=== PATIENT | female | born 1990 | race Caucasian/White ===

== ENCOUNTER 2017-10-18 06:30 | Inpatient (IN) | payer OTHER ==
[~2017-10-18] VITALS: Ht 165.1 cm; Wt 77.9 kg
[~2017-10-18 06:30] MED LIST: PREN1TAB49 PO
[2017-10-18 06:54] VITALS: Ht 165.1 cm; Wt 77.9 kg
[2017-10-18] MEDS ORDERED: BUTORPHANOL 2 MG INJ IV PRN ×2 (07:00)
[2017-10-18] MEDS ORDERED: OXYTOCIN 30 UNITS/LR 500 ML IV SCH ×2 (07:00)
[2017-10-18] MEDS ORDERED: AMPICILLIN 2 GM/NS (PMX) 100 ML IV ONE (07:00)
[2017-10-18] MEDS ORDERED: IBUPROFEN 600 MG TAB PO PRN (07:00)
[2017-10-18] MEDS ORDERED: OXYTOCIN 30 UNITS/LR 500 ML IV PRN ×2 (07:00→21:00)
[2017-10-18] MEDS ORDERED: MISOPROSTOL 200 MCG TAB PR PRN ×2 (07:00→21:00)
[2017-10-18] MEDS ORDERED: LIDOCAINE 1% (MPF) 30 ML INJ INJ PRN (07:00)
[2017-10-18] MEDS ORDERED: CARBOPROST 250 MCG INJ IM PRN ×2 (07:00→21:00)
[2017-10-18] MEDS ORDERED: METHYLERGONOVINE 0.2 MG INJ IM PRN ×2 (07:00→21:00)
[2017-10-18] MEDS: LACTATED RINGER'S 1,000 ML IV SCH ×3 (07:06→15:52)
[2017-10-18 07:30] VITALS: BP 112/77; PULSE 95; RESP 20
[2017-10-18 07:57] LABS: BASOPHILS % 0.2 % (0.0-2.0); EOSINOPHILS # 0.1 10^3/ul (0.0-0.5); EOSINOPHILS % 1.2 % (0.0-7.0); HEMATOCRIT 40.8 % (37.0-47.0); HEMOGLOBIN 14.5 g/dl (12.0-16.0); LYMPHOCYTES # 2.1 10^3/ul (0.8-2.9); LYMPHOCYTES % 19.2 % (15.0-51.0); MEAN CORPUSCULAR HEMOGLOBIN 29.7 pg (29.0-33.0); MEAN CORPUSCULAR HGB CONC 35.5 g/dl (32.0-37.0); MEAN CORPUSCULAR VOLUME 83.4 fl (82.0-101.0); MEAN PLATELET VOLUME 10.6 fl (7.4-10.4); MONOCYTE # 0.7 10^3/ul (0.3-0.9); MONOCYTES % 6.3 % (0.0-11.0); PLATELET COUNT 208 10^3/UL (140-415); RED BLOOD COUNT 4.89 10^6/ul (4.20-5.40); RED CELL DISTRIBUTION WIDTH 13.4 % (11.5-14.5); WHITE BLOOD COUNT 11.1 10^3/ul (4.8-10.8)
--- NOTE | 2017-10-18 08:03 | RADRPT ---
PROCEDURE: US OB. CLINICAL INDICATION: Uncertain size and dates. Contractions. TECHNIQUE: Multiple sonographic images of the uterus were obtained. The images were revi ewed on a PACS workstation. COMPARISON: No prior studies are available for comparison. FINDINGS: There is a single live intrauterine gestation. heart rate is 139 beats per minute. Measurements were made in order to determine age. The results are as follows: BPD = 958 cm. HC = 33.92 cm. AC = 36.88 cm. FL = 7.00 cm. Estimated weight is 3779 +/- 567 grams. LMP growth percentile is 70 %. Menstrual age by ultrasound dates is 38 weeks 5 days. The estimated date of delivery is 10/27/2017. Position is cephalic and placenta is posterior grade II. There is no evidence for an abruption or pl acenta previa. IMPRESSION: 1. Single live intrauterine gestation of 38 weeks 5 days menstrual age by ultrasound dates. 2. The estimated date of delivery is 10/27/2017. RPTAT: QQ .Kwame Mina MD, MD Date Time Electronically viewed and signed by .Kwame Mina MD, on 10/18/2017 08:03 .R/
--- NOTE | 2017-10-18 08:05 | RADRPT ---
PROCEDURE: US biophysical profile. CLINICAL INDICATION: Decreased motion. Contractions. TECHNIQUE: Multiple sonographic images of the uterus were obtained. The images were revi ewed on a PACS workstation. COMPARISON: No prior studies are available for comparison. FINDINGS: There is a single live intrauterine gestation. heart rate is 129 beats per minute. The position is cephalic. The placenta is posterior grade II with no abruption or previa. The NAVIN is 15.6 cm. (Normal = 5-20 cm.) Breathing Movement: 2 Gross Body Movement: 2 Tone: 2 Qualitative Amniotic Fluid Volume: 2 TOTAL: 8 IMPRESSION: 1. The biophysical score is 8/8. RPTAT: QQ .Kwame Mina MD, MD Date Time Electronically viewed and signed by .Kwame Mina MD, on 10/18/2017 08:05 .R/
[2017-10-18 08:29] LABS: INR 0.87; PARTIAL THROMBOPLASTIN TIME 28.6 Sec (25.0-35.0); PROTIME 11.9 Sec (11.9-14.9); PT RATIO 0.9
[2017-10-18] MEDS: MISOPROSTOL 25 MCG CAPSULE PO SCH ×4 (08:29→17:00)
[2017-10-18] MEDS: AMPICILLIN 1 GM/NS (PMX) 50 ML IV SCH ×3 (11:26→19:00)
[2017-10-18] MEDS: LACTATED RINGER'S 1,000 ML IV PRN ×2 (14:31→15:06)
[2017-10-18] MEDS ORDERED: FENTAnyl 2MCG/ML-ROPIV 0.2% 100 ML ONE (14:45)
[2017-10-18] MEDS ORDERED: NALOXONE (0.4 MG/ML) INJ IV PRN (15:00)
[2017-10-18] MEDS ORDERED: FENTAnyl 2MCG/ML-ROPIV 0.2% 100 ML BAG EPI SCH (15:00)
--- NOTE | 2017-10-18 19:03 | HP ---
Date/Time of Note Date/Time of Note DATE: 10/18/17 TIME: 19:02 OB - History Hx of Present Chief Complaint: induction of labor Estimated Due Date: Oct 21, 2017 : 2 Para: 1 Spontaneous : 0 Therapeutic : 0 Care: Good Care Ultrasounds: Normal mid trimester US Obstetrical Complications: None Medical Complications: None Past Family/Social History * Past Medical, Surgical, Family and Obstetric Histories reviewed from chart. GBS Status: Positive OB Admission Exam Vital Signs Vital Signs Vital Signs Date Time Temp Pulse Resp B/P Pulse Ox O2 Delivery O2 Flow Rate FiO2 10/18/17 07:30 98.2 95 20 112/77 Room Air Physical Exam HEENT: WNL Heart: Rhythm Normal Lungs: Clear, Equal Abdomen: WNL Extremities: Normal Reflexes: Normal Cervical Dilatation: 1cm Effacement: 50% Station: -1 Membranes: Intact Heart Rate: 130's Accelerations: Accelerations Present Decelerations: No Decelerations Varibility: Moderate Last 72 hours Lab Results CBC & BMP 10/18/17 06:59 OB Assessment/Plan Reason for admission: induction of labor Plan: Induction Induction Method: per Misoprostol Protocol GALILEO LOPEZ MD Oct 18, 2017 19:03
--- NOTE | 2017-10-18 19:06 | LDN ---
Date/Time of Note Date/Time of Note DATE: 10/18/17 TIME: 19:03 Delivery Summary Weeks of Gestation 39 weeks and 4 days Placenta Delivered: Spontaneously Meconium: none Episiotomy: No Perineal laceration: 1 Laceration repair: Second degree laceration repaired with 3-0 Vicryl Anesthesia type: Epidural Estimated blood loss: 200 Sponge & Needle done & correct: Yes All needle counts correct: Yes Any foreign bodies felt in the: No Problems: Delivery Information Sex Sex: male Apgars 1 Minute: 9 5 Minute: 9 Suctioning Nose & mouth suctioned at rosa: Yes Delee suction performed: No Umbilical Cord Umbilical cord with: 3 Vessels Cord presentations: no nuchal cord Cord Blood was obtained: Yes Mother & Baby Disposition Disposition Mom & Baby to Maternity; Good: Yes GALILEO LOPEZ MD Oct 18, 2017 19:06
[2017-10-18 20:45] VITALS: BP 107/58; PULSE 73; RESP 20
[2017-10-18] MEDS ORDERED: BENZOCAINE 20% 56 ML SPRAY TOP PRN (21:00)
[2017-10-18] MEDS ORDERED: WITCH HAZEL/GLYCERIN PAD PR PRN (21:00)
[2017-10-18] MEDS ORDERED: ACETAMINOPHEN 325 MG TAB PO PRN (21:00)
[2017-10-18] MEDS ORDERED: DIBUCAINE 1% 30 GM OINT PR PRN (21:00)
[2017-10-18] MEDS ORDERED: HYDROCODONE/APAP (5/325) TAB PO PRN (21:00)
[2017-10-18 21:30] VITALS: BP 106/60; PULSE 70; RESP 20
[2017-10-18] MEDS: SENNA/DOCUSATE NA (8.6MG/50MG) TAB PO SCH (23:08)
[2017-10-18] MEDS: LACTATED RINGER'S 1,000 ML IV* SCH (23:24)
[2017-10-18] MEDS: IBUPROFEN 600 MG TAB PO SCH (23:29)
[2017-10-19] VITALS: BP 110/60; PULSE 76; RESP 18
[2017-10-19 04:00] VITALS: BP 98/54; PULSE 64; RESP 20
[2017-10-19] MEDS: LACTATED RINGER'S 1,000 ML IV* SCH ×2 (04:32→12:32)
[2017-10-19] MEDS: IBUPROFEN 600 MG TAB PO SCH ×3 (06:36→18:24)
[2017-10-19] MEDS ORDERED: LANOLIN 7 GM TUBE TOP PRN (08:00)
[2017-10-19 08:10] VITALS: BP 92/51; PULSE 65; RESP 18
[2017-10-19] MEDS: SENNA/DOCUSATE NA (8.6MG/50MG) TAB PO SCH ×2 (09:26→20:53)
[2017-10-19 09:55] LABS: BASOPHILS % 0.2 % (0.0-2.0); EOSINOPHILS # 0.1 10^3/ul (0.0-0.5); EOSINOPHILS % 0.7 % (0.0-7.0); HEMATOCRIT 37.1 % (37.0-47.0); HEMOGLOBIN 13.1 g/dl (12.0-16.0); LYMPHOCYTES # 2.1 10^3/ul (0.8-2.9); MEAN CORPUSCULAR HEMOGLOBIN 30.1 pg (29.0-33.0); MEAN CORPUSCULAR HGB CONC 35.3 g/dl (32.0-37.0); MEAN CORPUSCULAR VOLUME 85.3 fl (82.0-101.0); MEAN PLATELET VOLUME 10.3 fl (7.4-10.4); MONOCYTE # 1.2 10^3/ul (0.3-0.9); MONOCYTES % 7.1 % (0.0-11.0); NEUTROPHILS % 78.5 % (39.0-77.0); PLATELET COUNT 213 10^3/UL (140-415); RED BLOOD COUNT 4.35 10^6/ul (4.20-5.40); RED CELL DISTRIBUTION WIDTH 13.5 % (11.5-14.5); WHITE BLOOD COUNT 16.5 10^3/ul (4.8-10.8)
--- NOTE | 2017-10-19 11:08 | QN ---
Documentation Comment No complaint Afebrile VSS Fundus firm Lochia scant PPD #1 Stable Continue present care. GALILEO LOPEZ MD Oct 19, 2017 11:08
[2017-10-19 16:00] VITALS: BP 97/57; PULSE 77; RESP 18
[2017-10-19 19:30] VITALS: BP 106/69; PULSE 71; RESP 18
[2017-10-19] MEDS ORDERED: INFLUENZA VIRUS VACCINE 0.5 ML (DISPENSING) IM* ONE (21:00)
[2017-10-20] MEDS: IBUPROFEN 600 MG TAB PO SCH ×4 (00:02→18:40)
[2017-10-20 04:15] VITALS: BP 107/65; PULSE 65; RESP 19
[2017-10-20 08:00] VITALS: BP 116/70; PULSE 61; RESP 18
[2017-10-20] MEDS ORDERED: DIPHTH/TET/ACEL PERTUSS (ADULT) 0.5 ML VIAL IM* ONE (09:00)
[2017-10-20] MEDS: SENNA/DOCUSATE NA (8.6MG/50MG) TAB PO SCH (09:14)
[2017-10-20 11:17] LABS: BASOPHILS % 0.2 % (0.0-2.0); EOSINOPHILS # 0.3 10^3/ul (0.0-0.5); EOSINOPHILS % 2.3 % (0.0-7.0); HEMATOCRIT 36.6 % (37.0-47.0); HEMOGLOBIN 12.7 g/dl (12.0-16.0); LYMPHOCYTES # 1.8 10^3/ul (0.8-2.9); LYMPHOCYTES % 15.1 % (15.0-51.0); MEAN CORPUSCULAR HEMOGLOBIN 29.7 pg (29.0-33.0); MEAN CORPUSCULAR HGB CONC 34.7 g/dl (32.0-37.0); MEAN CORPUSCULAR VOLUME 85.7 fl (82.0-101.0); MEAN PLATELET VOLUME 10.3 fl (7.4-10.4); MONOCYTE # 0.7 10^3/ul (0.3-0.9); MONOCYTES % 5.8 % (0.0-11.0); NEUTROPHIL # 9.2 10^3/ul (1.6-7.5); NEUTROPHILS % 76.2 % (39.0-77.0); PLATELET COUNT 223 10^3/UL (140-415); RED BLOOD COUNT 4.27 10^6/ul (4.20-5.40); RED CELL DISTRIBUTION WIDTH 13.9 % (11.5-14.5); WHITE BLOOD COUNT 12.1 10^3/ul (4.8-10.8)
--- NOTE | 2017-10-20 14:22 | DS ---
Date/Time of Note Date/Time of Note DATE: 10/20/17 TIME: 14:21 Obstetrical Discharge Record Final Diagnosis Final Diagnosis: Term delivered Vaginal Delivery Obstetrical Delivery: Spontaneous Condition on Discharge Physical Assessment Voiding: Yes Bowel Movement: Yes Breast: Soft, non-tender, Filling Fundus: Firm Calf Tenderness: No Patient Condition: Stable GALILEO LOPEZ MD Oct 20, 2017 14:21
[2017-10-20 16:00] VITALS: BP 104/70; PULSE 77; RESP 18
== END 2017-10-20 19:30 | disposition home or self-care (01) | DRG 775 ==
LOC: L-D 06:30 → PP1 21:02
PROVIDERS: ADMIT Obstetrics & Gynecology; ATTEND Obstetrics & Gynecology
PROC: 0KQM0ZZ Repair Perineum Muscle, Open Approach (ICD-10-PCS; 2017-10-18)
PROC: 3E0P7GC Introduction of Other Therapeutic Substance into Female Reproductive, Via Natural or Artificial Opening (ICD-10-PCS; 2017-10-18)
PROC: 10E0XZZ Delivery of Products of Conception, External Approach (ICD-10-PCS; principal; 2017-10-18 06:30)
PROC: 3E0234Z Introduction of Serum, Toxoid and Vaccine into Muscle, Percutaneous Approach (ICD-10-PCS; 2017-10-20)
DX: O70.1 Second degree perineal laceration during delivery (principal); Z37.0 Single live birth; Z23 Encounter for immunization; Z3A.39 39 weeks gestation of pregnancy
CPT/HCPCS: 62319; 76815; 76818; 84112; 85025; 85610; 85730; 86592; 86900; 86901; 87340; 90686; 90715; J0290; J0595; J2590; J3010; J7120